=== PATIENT | female | born 1945 | race Two or more races ===

== ENCOUNTER 2023-06-16 04:24 | Day surgery (SDC) | payer OTHER, BC ==
[2023-06-12 12:43] VITALS: BMI 26.6
[2023-06-16] MEDS ORDERED: ACETAMINOPHEN 1000 MG/100 ML BAG IVPB PRN (07:45)
[2023-06-16] MEDS ORDERED: ONDANSETRON 4 MG/2 ML VIAL IVPUSH PRN ×2 (07:45→10:56)
[2023-06-16] MEDS ORDERED: oxyCODONE HCL 5 MG TABLET PO PRN ×2 (07:45→10:56)
[2023-06-16] MEDS ORDERED: LACTATED RINGERS SOLUTION 1,000 ML IV SCH (07:45)
[2023-06-16] MEDS ORDERED: ONDANSETRON 4 MG/2 ML VIAL ONE (08:31)
[2023-06-16] MEDS ORDERED: PROPOFOL 20 ML ONE (08:31)
[2023-06-16] MEDS ORDERED: KETOROLAC TROMETHAMINE 30 MG/1 ML VIAL ONE (08:31)
[2023-06-16] MEDS ORDERED: MIDAZOLAM HCL 2 MG/2 ML SINGLE DOSE VIAL ONE (08:31)
[2023-06-16] MEDS ORDERED: DEXAMETHASONE SOD PHOSPHATE 4 MG/1 ML VIAL ONE (08:31)
[2023-06-16] MEDS ORDERED: LIDOCAINE HCL/PF 2% SDV 5ML VIAL ONE (08:31)
[2023-06-16] MEDS ORDERED: SEVOFLURANE 250 ML BTL ONE (08:32)
[2023-06-16] MEDS ORDERED: IBUPROFEN 600 MG TABLET (FP) PO PRN (10:56)
[2023-06-16] MEDS ORDERED: IBUPROFEN 800 MG/8 ML IJ IVPB PRN (10:56)
[2023-06-16] MEDS ORDERED: ELECTROLYTE-148 SOLN 1,000 ML IV SCH (11:00)
[2023-06-16 17:44] VITALS: BP 141/82; PULSE 57; RESP 20; TEMP 97.4
== END 2023-06-16 12:00 | disposition home or self-care (01) ==
LOC: JASU-SURG 04:24
PROVIDERS: ATTEND Obstetrics & Gynecology
PROC: 0UDB8ZX Extraction of Endometrium, Via Natural or Artificial Opening Endoscopic, Diagnostic (ICD-10-PCS; principal; 2023-06-16 09:00)
DX: D25.0 Submucous leiomyoma of uterus (principal); N84.0 Polyp of corpus uteri
CPT/HCPCS: 88305-TC; 94760